=== PATIENT | male | born 1950 | race Caucasian/White ===

== ENCOUNTER → 2016-09-26 | Outpatient (CLI) | payer OTHER, MEDICARE ==
[~2016-09-26] MED LIST: ALLOPURINOL300 MG PO; BISOPROLOL/HCTZ1 TA4 PO; COLCRYS0.6 M2 PO; COLCRYS0.6 MG PO; CYMBALTA PO; DEPO-TESTOT200 MG/ML IM; DETROL LA PO; DITROPAN5 MG PO; FLONASE 0.05% N16 GM; HYDRALAZINE HCL25 MG PO; INDOMETHACIN75 MG PO; LASIX PO; LASIX20 MG PO; LISINOPRIL20 MG PO; MILLIPRED DP5 M1 PO; OXYCODON-ACETA1 EAC1 PO; OXYCODONE HCL5 M1 PO; PERCOCET 10/3251 TAB PO; SOD BICARBONATE PO; SODIUM BICARBO325 MG PO; TOPROL XL 50 MG50 MG PO; TOPROL XL PO; TRAMADOL HCL50 M1 PO; ULORIC40 MG PO; XARELTO10 MG PO; ZONEGRAN100 MG PO
--- NOTE | ~2016-09-26 | CT57 ---
[facility] A Service of [facility] & [facility] RADIOLOGY TEXT RESULTS PATIENT: RITU WANG LOCATION: SNIV : 50 UNIT #: [id number] AGE: [address]: Miguel Richardson MD SEX: M ORDER DR: [id number] [address] [address] [id number] O MR#: [id number] Acc #: [id number] NAME: RITU WANG : 1950 SEX: M STUDY DATE/TIME: 09/26/2016 13:24 UNIT: SNIV ROOM: STUDY DESCRIPTION: CT Chest Wo Cont Attending Physician: Miguel Richardson M.D. Referring Physician: Miguel Richardson M.D. Ordering Physician: Miguel Richardson M.D. Primary Care Physician: Osmany Huertas M.D. MEDICAL IMAGING REPORT This report is preliminary unless electronic signature is present. EXAM CT chest without contrast DATE 09/26/16 HISTORY Six-month followup descending thoracic aortic aneurysm. History of prostate cancer. COMPARISON CT chest 03/23/2016. PROCEDURE 5 mm noncontrast axial images through the chest. Sagittal and coronal reformatted images were obtained. This CT exam was performed with one or more of the following radiation dose reduction techniques: Automatic exposure control, adjustment of mA and/or kV according to patient size, and iterative reconstruction. FINDINGS There is borderline aneurysmal dilation of the aortic root at the sinuses of Valsalva, 4.1 cm. There is fusiform aneurysmal dilation of the mid ascending thoracic aorta measuring 5 cm, and when measured in a comparable level on the 03/23/2016 examination, it is not thought to be significantly changed. A stent is seen within the transverse aorta and [id number] descending thoracic aorta, unchanged in size. The caliber of the distal transverse or proximal descending thoracic aorta, 5 cm, previously 5.1 cm, without significant change. Mid descending thoracic aorta measures nearly 4.4 cm, unchanged. Aneurysmal dilation of the aorta at the diaphragmatic hiatus approximately 4.5 cm, unchanged. Stent is present within the left common carotid artery, stable in position. STS. [facility] A Service of [facility] & [facility] RADIOLOGY TEXT RESULTS PATIENT: RITU WANG [id number] [birth year] UNIT #: [id number] AGE: [address]: Miguel Richardson MD SEX: M ORDER DR: Dense coronary artery calcifications. Heart size within normal limits. Benign calcified mediastinal and bilateral hilar lymph nodes. No pericardial effusion. No pleural effusion. No acute airspace disease. Gastric band device in place. Extensive cystic changes of both kidneys, with a nonobstructing stone in the left upper renal pole, benign-appearing cortical calcification in the right upper renal pole. Colonic diverticular changes. There is a large midline ventral abdominal wall hernia containing only fat, incompletely imaged on this examination. Spleen size measures within normal limits on today's examination. Right basilar infiltrate described on previous examination has resolved. IMPRESSION 1. Stable aneurysmal dilation of the aortic root, ascending and descending thoracic aorta, as described in detail in the report, compared to 03/23/2016. The transverse and descending thoracic aortic stent and the left common carotid artery stent appear unchanged in position and contour. 2. Resolution of right basilar airspace disease since 03/23/2016. 3. Polycystic changes of the kidneys. 4. Incompletely imaged large ventral abdominal wall hernia containing only omental fat. 5. Dense coronary artery calcifications. Correlate with cardiac history. 6. Signs of gastric banding procedure. Dictated by... Suzy Khalil M.D. THIS IS AN ELECTRONICALLY VERIFIED REPORT Suzy Khalil M.D. at 09/27/2016 8:48 AM [facility]/brent TD: 09/26/2016 21:54 JOB #: [id number] MEDICAL IMAGING REPORT Page 1 of 1
--- NOTE | ~2016-09-26 | US37 ---
[facility] A Service of [facility] & [facility] RADIOLOGY TEXT RESULTS PATIENT: RITU WANG LOCATION: SNIV : 50 UNIT #: [id number] AGE: [address]: Miguel Richardson MD SEX: M ORDER DR: [id number] [address] [address] [id number] O MR#: [id number] Acc #: [id number] NAME: RITU WANG : 1950 SEX: M STUDY DATE/TIME: 09/26/2016 13:32 UNIT: SNIV ROOM: STUDY DESCRIPTION: US Carotid W/Doppler Bilateral Attending Physician: Miguel Richardson M.D. Referring Physician: Miguel Richardson M.D. Ordering Physician: Miguel Richardson M.D. Primary Care Physician: Osmany Huertas M.D. MEDICAL IMAGING REPORT This report is preliminary unless electronic signature is present. 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 FINDINGS Duplex imaging of the carotid arteries was performed. The right common carotid artery is patent. Significant amount of heterogeneous plaque is seen in the right internal carotid artery with severely increased velocities. Velocity in the right common carotid is 52 cm/sec, internal is increased to 377 cm/sec in the proximal portion with an end-diastolic velocity of 139 cm/sec, 431 x 179 cm/sec and in the mid portion it is 407 x 143 cm/sec. External carotid velocity is 106 cm/sec. Right ICA/CCA ratio is 7.8. On the left side, the common carotid artery is patent distal to the carotid-subclavian bypass with a velocity of 59 cm/sec. The carotid-subclavian bypass is patent with velocity of 140 cm/sec. Internal and external carotid arteries are patent with only mild plaque in the internal carotid artery. Velocity in the left internal carotid artery in the proximal portion is 112 cm/sec, mid portion is 105 and distally it is 82 cm/sec. External is 69 cm/sec. Left ICA/CCA ratio is 1.8. IMPRESSION 1. Severe, greater than 70% stenosis is seen in the right internal carotid artery. 2. Less than 50% stenosis is seen in the left internal carotid artery. 3. Left carotid-subclavian bypass is widely patent. [facility] A Service of [facility] RADIOLOGY TEXT RESULTS PATIENT: RITU WANG LOCATION: [facility] : [birth year] UNIT #: [id number] AGE: [address]: Miguel Richardson MD SEX: M ORDER DR: Dictated by... Miguel Richardson M.D. THIS IS AN ELECTRONICALLY VERIFIED REPORT Miguel Richardson M.D. at 09/29/2016 11:00 AM Shari TD: 09/27/2016 01:44 JOB #: [id number] MEDICAL IMAGING REPORT Page 1 of 1
== END | disposition home or self-care (01) ==
LOC: SNIV 12:45
DX: I71.2 Thoracic aortic aneurysm, without rupture (principal); J98.4 Other disorders of lung; N28.1 Cyst of kidney, acquired; K43.9 Ventral hernia without obstruction or gangrene; I25.10 Atherosclerotic heart disease of native coronary artery without angina pectoris; Z98.890 Other specified postprocedural states; I65.23 Occlusion and stenosis of bilateral carotid arteries
CPT/HCPCS: 71250; 93880